=== PATIENT | female | born 2005 | race Caucasian/White ===

== ENCOUNTER 2023-04-11 20:32 | Emergency (ER) | payer MEDICAID, SELFPAY ==
[2023-04-11 20:47] VITALS: PULSE 85; RESP 18; TEMP 37.1; O2SAT 98; BMI 20.3
--- NOTE | 2023-04-11 20:51 | ED_ITS ---
[facility] - General Adult General: Stated complaint: Covid Positive Time Seen by Provider: 04/11/23 20:46 Source: patient Mode of arrival: ambulatory Limitations: no limitations History of Present Illness: 17-year-old female states that she had body aches chills not feeling well over the last 2 days. She denies any shortness of breath she is in no distress she did have a positive COVID test. She had no vomiting no diarrhea. Associated symptoms: Deny chest pain, dyspnea, headache(s), nausea, rash or vomiting Review of Systems Const: Reports: fever(s), chills and body aches; Denies: change in appetite Eyes: Denies: eye discomfort ENMT: Denies: throat pain or dental pain Card: Denies: chest pain Resp: Denies: dyspnea GI: Denies: abdominal pain, nausea, vomiting or diarrhea : Denies: dysuria Musc: Denies: neck pain or back pain Skin/Breast: Denies: rash Neuro: Denies: headache(s) Physical Exam Const: COMMON NORMALS: no acute distress, patient oriented x3 and healthy appearing HENMT: COMMON NORMALS: normocephalic and atraumatic HEAD & SCALP: normocephalic and atraumatic Neck/C-Spine: COMMON NORMALS: full ROM and supple Chest: COMMONS NORMALS: normal inspection of the chest and normal palpation of entire chest wall Resp: COMMON NORMALS: normal respiratory effort, No retractions, No use of accessory muscles and clear to auscultation bilaterally AUSCULTATION: clear to auscultation bilaterally Cardio: COMMON NORMALS: regular rate, regular rhythm and No murmurs present (Cardio) RATE: regular rate RHYTHM: regular rhythm GI: INSPECTION: Yes normal to inspection Extremity: COMMON NORMALS: normal to inspection and full ROM Neuro: COMMON NORMALS: patient oriented x3, moves all extremities and no focal motor deficits Psych: COMMON NORMALS: mental status grossly normal, Normal thought process present and cooperative THOUGHT PROCESS: Normal thought process present Skin: COMMON NORMALS: no rashes or lesions noted and no wounds GENERAL SKIN EXAM: no rashes or lesions noted [facility] - General Adult Medical Decision Making Patient presents with COVID she is well-appearing here in no distress we will give her Decadron she is stable for discharge she is follow-up with PCP and return if worsening. Discharge Plan Discharge Patient Disposition: Home Clinical Impression: COVID-19 Condition: Stable Discharge Orders: Discharge ED (Routine); Ordered 04/11/23 Ordered By: Pipo Del Rio Discharge Diet: Advance as tolerated Discharge Activity: Resume usual activity Patient Instructions: COVID-19 (Coronavirus Disease 2019) (ED) Coding Level of Care Code ED Audiovisual Librarian for Tsering Mitchell
[2023-04-11 20:59] VITALS: O2SAT 98
[2023-04-11] MEDS: dexamethasone 10 mg/mL INJ IM (21:10)
== END 2023-04-11 21:11 | disposition home or self-care (01) ==
PROVIDERS: Emergency Provider Emergency Medicine
DX: U07.1 COVID-19 (principal)
CPT/HCPCS: 96372; 99284; J1100

== ENCOUNTER 2023-05-17 12:33 | Emergency (ER) | payer MEDICAID, SELFPAY ==
[2023-05-17 12:48] VITALS: BP 131/79; PULSE 91; RESP 17; TEMP 36.7; O2SAT 97; BMI 19.5
--- NOTE | 2023-05-17 13:30 | W.ED.DENTAL ---
HPI - Dental/Oral General: Chief complaint: Dental/Oral Stated complaint: Dental Pain Time Seen by Provider: 05/17/23 13:14 History of Present Illness: 17-year-old female comes in today with dental pain and facial swelling. Patient reports upper left side jaw pain with mild facial swelling. Patient reports a history of root canal to the canine of the left upper jaw. Patient reports in the last 2 to 3 days she had increasing pain and followed by swelling in the face. Patient appears nontoxic. Patient appears in no acute distress. Associated symptoms: Denies fever(s) Review of Systems General: Reports: 10 or more systems reviewed and unremarkable except in HPI and below Const: Reports: chills; Denies: fever(s) ENMT: Reports: dental pain Card: Denies: chest pain Resp: Denies: dyspnea Physical Exam Const: COMMON NORMALS: alert HENMT: FACE & SINUS: edema (Left facial edema mild) TEETH & GINGIVA IMAGES: 1. Redness and swelling, tenderness to tooth THROAT: posterior oropharynx normal Neck/C-Spine: COMMON NORMALS: full ROM and no meningeal signs Resp: COMMON NORMALS: normal respiratory effort and clear to auscultation bilaterally AUSCULTATION: clear to auscultation bilaterally Cardio: COMMON NORMALS: regular rate and regular rhythm RATE: regular rate RHYTHM: regular rhythm GI: COMMON NORMALS: Soft to palpation and non-tender PALPATION: Yes Soft to palpation Back/Pelvis: COMMON NORMALS: thoracic and lumbar spine normal to inspection Extremity: COMMON NORMALS: normal to inspection Neuro: SENSORIUM/ORIENTATION: Yes alert MENINGEAL SIGNS: Yes no meningeal signs Skin: COMMON NORMALS: turgor normal GENERAL SKIN EXAM: turgor normal Course Vital Signs: Vital signs: Vital Signs Temperature 98.1 F 05/17/23 12:48 Pulse Rate 91 05/17/23 12:48 Respiratory Rate 17 05/17/23 12:48 Blood Pressure 131/79 05/17/23 12:48 Pulse Oximetry 97 05/17/23 12:48 Oxygen Delivery Me thod Room Air 05/17/23 12:48 [facility] - Dental/Oral Medical Decision Making 17-year-old female comes in today for complaints of left facial swelling with tenderness to the #11 tooth. On exam there is some erythema and swelling to the gingiva to the #11 tooth area. Posterior pharynx is open without any signs of swelling or asymmetry. Vital signs are normal. Lungs are clear to auscultation. No respiratory difficulty is noted. Differential diagnosis includes but not limited to dental carry, dental abscess, dental pain, retropharyngeal abscess. No signs of severe injury or infection is noted. Patient was started on Augmentin 1 tablet twice a day for 7 days. Patient was given 1 dose of dexamethasone in the emergency room for facial swelling. Patient was given hydrocodone 5 mg with 325 of acetaminophen for severe pain. Patient and male significant other reported understanding of care plan and need for follow-up or return to the ER. No radiology studies performed this visit Discharge Plan Discharge Patient Disposition: Home Clinical Impression: Dental abscess Condition: Stable Prescriptions: New amoxicillin-pot clavulanate 875-125 mg tablet 1 tab PO BID Qty: 14 0RF hydrocodone-acetaminophen 5-325 mg tablet 1 tab PO Q8H PRN (Reason: pain (scale score 7-10)) Qty: 5 0RF Discharge Orders: Discharge ED (Routine); Ordered 05/17/23 Ordered By: Joseph Melendrez Discharge Diet: Usual diet Discharge Activity: Increase activity as tolerated Patient Instructions: Toothache (ED), Opioid Safety Activity Restrictions/Additional Instructions: Take antibiotic as directed. Drink plenty of water and fluids. Follow-up with primary care in 1 week as needed. Follow-up with dentist for definitive care. Return to ED for new concerns. Coding Level of Care Code ED Trouble Clerk for Tsering Mitchell
[2023-05-17] MEDS: dexamethasone 4 mg Tablet 10 MG PO (13:49)
[2023-05-17] MEDS: amoxicillin-clav 875-125 mg Tablet 1 TAB PO (13:49)
[2023-05-17] MEDS: HYDROcodone-acetaminophen 5-325 mg Tablet 1 TAB PO (13:50)
[2023-05-17 13:52] VITALS: BP 131/79; PULSE 91; RESP 17; TEMP 36.7; O2SAT 97
== END 2023-05-17 13:58 | disposition home or self-care (01) ==
PROVIDERS: Emergency Provider Nurse Practitioner Family
DX: K04.7 Periapical abscess without sinus (principal)
CPT/HCPCS: 99283; J8540

== ENCOUNTER 2023-09-04 10:22 | Outpatient (CLI) | payer MEDICAID, SELFPAY ==
--- NOTE | 2023-09-04 10:30 | US_ITS ---
WS: [id number] ULTRASOUND LEFT BREAST HISTORY: fibroadenoma. Known mass as by patient is increasing in size. COMPARISON: 02/01/2023, 12/14/2022 TECHNIQUE: 2-D and Doppler. Well-circumscribed hypoechoic mass in the LEFT breast at 9:00, 1 cm from the nipple. There is mild pe ripheral vascularity. Mass measures 1.4 x 2.2 x 1.0 cm. This mass was also seen on the prior examinat ion from 02/01/2023 but does appear to be increased in size. Prior measurement of 1.0 x 0.5 x 1.0 cm. There does appear to be a clip within the mass indicating a prior biopsy. IMPRESSION: US/US breast LT limited* [id number] BI-RADS: 2-Benign FOLLOW-UP: See Report Slight increase in size of the previously biopsied fibroadenoma LEFT breast.
== END 2023-09-04 10:23 | disposition home or self-care (01) ==
LOC: RAD 10:23
PROVIDERS: PCP Family Medicine; Visit Provider Family Medicine
DX: D24.2 Benign neoplasm of left breast (principal)
CPT/HCPCS: 76642

== ENCOUNTER 2023-12-25 10:48 | Emergency (ER) | payer MEDICAID, SELFPAY ==
[2023-12-25 11:00] VITALS: BP 125/83; PULSE 63; RESP 18; TEMP 36.8; O2SAT 99; BMI 17.4
[2023-12-25 11:13] LABS: Basophils % 0.4 %; Eosinophils % 0.4 %; Hematocrit 39.9 % (36-47); Lymphocytes # 2.1 10^3/uL (1.5-6.5); Lymphocytes % 31.2 %; Mean Corpuscular HGB Conc 32.8 g/dL (30-55); Mean Corpuscular Hemoglobin 29.4 pg (27-33); Mean Corpuscular Volume 89.7 fl (85-98); Mean Platelet Volume 9.8 fL (7.4-10.4); Monocytes # 0.5 10^3/uL (0.2-0.9); Monocytes % 6.9 %; Neutrophils # 4.11 10^3/uL (1.8-8.0); Neutrophils % 60.8 %; Nucleated Red Blood Cells % 0 %; Platelet Count 290 10^3/cmm (157-399); Red Blood Count 4.45 10^6/uL (3.85-5.65); Red Cell Distribution Width 13.3 % (12.1-15.1); White Blood Count 6.77 10^3/uL (4.5-13.0)
[2023-12-25 11:25] LABS: Alanine Aminotransferase 8 U/L (0-33); Albumin Level 4.2 g/dL (3.5-5.2); Alkaline Phosphatase 89 U/L (35-105); Anion Gap 15.9 (5-19); Aspartate Amino Transferase 13 U/L (0-32); Blood Urea Nitrogen 6 mg/dL (6-20); Calcium 9.2 mg/dL (8.5-10.5); Carbon Dioxide 23 mmol/L (22-29); Chloride 103 mmol/L (98-107); Creatinine Clr Calc Pharmacy 133.8726; Globulin 3.5 g/dL (1.3-4.6); Glomerular Filtration Rate 127.5 mL/min (90-130); Glucose 86 mg/dL (65-115); Lipase 23 U/L (13-60); Osmolality Calculated 283 mOsm/kg (285-295); Potassium 3.9 mmol/L (3.5-5.1); Sodium 138 mmol/L (136-145); Total Bilirubin 0.7 mg/dL (0.15-1.2); Total Protein 7.7 g/dL (6.6-8.7)
[2023-12-25 11:31] LABS: HCG, Serum Qual Negative (Negative)
--- NOTE | 2023-12-25 12:44 | US_ITS ---
WS: [id number] US transvaginal [id number] HISTORY: PCOS history with acute pelvic pain today-neg hcg COMPARISON: None available. Uterus: 6.3 cm x 4.9 cm x 3.0 cm. Normal size anteverted uterus. No fibroid or mass. Endometrium: 0.1 cm. Thin atrophic endometrium. Right ovary: 3.0 cm x 1.4 cm x 2.8 cm. Ovary is normal size. There are several small follicles but le ss than 20 within the ovary. Normal vascularity. Left ovary: 2.9 cm x 1.4 cm x 1.9 cm. Small follicles throughout the ovary. Number of follicles near 20. Normal vascularity. No cyst or solid mass. Small amount of free fluid in the cul-de-sac. US/US transvaginal [id number] IMPRESSION: 1. Thin endometrium. 2. Numerous follicles in the LEFT ovary which can be seen with PCOS. Less than 20 follicles RIGHT ovary.
--- NOTE | 2023-12-25 12:45 | ED_ITS ---
HPI - Abdominal Pain 2 General: Chief Complaint: Abdominal Pain Stated Complaint: abd pain, lower back pain, leg pain Time Seen by Provider: 12/25/23 12:12 Source: patient Mode of arrival: ambulatory Limitations: no limitations History of Present Illness: This patient was referred from urgent care. She states that when she awoke this morning before she got a bed she had pain in her left lower abdomen. She stated the pain seemed to radiate into her legs and into her low back. She denies any associated nausea vomiting or diarrhea. She denies any dysuria. Her last menstrual period started 2 days ago and has been normal thus far. She does relate that she has had a history of polycystic ovarian disease. She currently takes oral contraceptives. She denies abdominal surgeries. She denies any injuries lifting vaginal discharge history of STDs, pregnancies etc. No dysuria, hematuria or history of kidney stones. Location: LLQ Migration to: no migration Associated Symptoms: Reports no associated symptoms; Denies chills, diarrhea, dysuria, fever(s), hematemesis, nausea and vomiting Review of Systems 2 Const: Denies: fever(s) or chills ENMT: Denies: throat pain, odynophagia, nasal discharge or nasal congestion Card: Denies: chest pain or palpitations Resp: Denies: dyspnea, productive cough or non-productive cough GI: Denies: nausea, vomiting, hematemesis or diarrhea : Reports: vaginal bleeding; Denies: flank pain, difficulty voiding, dysuria, urinary frequency or vaginal discharge Musc: Denies: neck pain, extremity pain or extremity swelling Skin/Breast: Denies: rash Neuro: Denies: headache(s), numbness in extremities or weakness in extremities Endo: Denies: polyuria or polydipsia PFSH ED 2 PFSH: Medical History Fibroadenoma of left breast Right arm fracture PCOS (polycystic ovarian syndrome) Surgical History History of surgery on arm Social History Smoking and tobacco/nicotine status: current every day tobacco/nicotine user e- cigarettes E-Cigarette Details: with nicotine Quit status (tobacco/nicotine): considering quitting Second hand smoke exposure: No Alcohol intake: never Substance/Drug Use: never Adopted: No Caregiver/support person: No Lives independently: Yes Household members: significant other service: No Current occupational status: employed and unemployed Current occupational exposures/hazards: No Pets and animals: No Sexually active: Yes Do you think of yourself as: Straight/Heterosexual Current gender identity: Female Female Reproductive History: Spontaneous abortions: No Physical Exam 2 Narrative: EXAM NARRATIVE: Well-developed healthy-appearing female who is quiet and comfortable answers questions appropriately. Const: COMMON NORMALS: no acute distress, patient oriented x3, healthy appearing and alert GENERAL APPEARANCE: cooperative and comfortable N UTRITIONAL APPEARANCE: thin HENMT: COMMON NORMALS: normocephalic, Normal nasal mucous membranes and turbinates present, moist oral mucous membranes and oropharynx normal HEAD & SCALP: normocephalic NOSE: Normal nasal mucous membranes and turbinates present Eye: COMMON NORMALS: Equal, round and reactive pupils present and EOMs intact bilaterally PUPIL: Yes Equal, round and reactive pupils present Neck/C-Spine: COMMON NORMALS: full ROM, no lymphadenopathy and supple Resp: COMMON NORMALS: normal respiratory effort and clear to auscultation bilaterally AUSCULTATION: clear to auscultation bilaterally Cardio: COMMON NORMALS: regular rate, regular rhythm, No murmurs present (Cardio) and Peripheral pulses 2+ throughout RATE: regular rate RHYTHM: r egular rhythm PERIPHERAL PULSES: Peripheral pulses 2+ throughout GI: COMMON NORMALS: Soft to palpation and no masses PALPATION: Yes Soft to palpation OTHER: Thin abdomen which appears normal. Normal bowel sounds. She has some mild tenderness in left lower quadrant as well as left upper quadrant to palpation. No rebound or guarding. Any attempted exacerbation of her symptoms does not change her symptoms. : COMMON NORMALS: Yes no CVA tenderness BLADDER/KIDNEY EXAM: Yes no CVA tenderness Back/Pelvis: COMMON NORMALS: no CVA tenderness, thoracic and lumbar spine normal to inspection, no thoracic nor lumbar tenderness, thoraco-lumbar ROM normal and straight leg raise negative bilaterally Extremity: COMMON NORMALS: normal to inspection, full ROM, capillary refill normal, no joint enlargement, no calf tenderness and no pedal edema Neuro: COMMON NORMALS: patient oriented x3, moves all extremities, no focal motor deficits and no sensory deficits noted SENSORIUM/ORIENTATION: Yes alert Psych: COMMON NORMALS: mental status grossly normal Skin: COMMON NORMALS: no rashes or lesions noted, no wounds and turgor normal GENERAL SKIN EXAM: no rashes or lesions noted and turgor normal Course 2 Reevaluation(s): Reevaluation #1: Patient states she is feeling some better. She was reexamined. She still has some residual tenderness in the left upper and right upper quadrants but no left or right lower quadrant tenderness at this time. No peritoneal signs no other concerning findings. I shared the results of ultrasound and laboratories with her. Plan will be put her on nonsteroidals for the next 3 to 5 days and have her follow-up if she is having any change in her symptoms or any concerns. She acknowledged our discussion and recommendations. No evidence of surgical condition at this time. Time: 14:46 Vital Signs: Vital signs: Vital Signs Temperature 98.3 F 12/25/23 11:00 Pulse Rate 50 L 12/25/23 14:00 Respiratory Rate 14 12/25/23 14:00 Blood Pressure 116/67 12/25/23 14:00 Pulse Oximetry 100 12/25/23 14:00 Oxygen Delivery Me thod Room Air 12/25/23 14:00 MDM - Abdominal Pain Medical Decision Making This patient present herself to the emergency department today because of left lower quadrant pain. She states the pain came on this morning when she was getting out of bed. She states that was rather abrupt in onset and has improved some but she still has some residual pain and discomfort in was told to come to the emergency department. She has a history of polycystic ovarian disease. No history of PID or other issues. She is currently taking oral contraceptives and is currently menstruating. She has had no fevers nausea vomiting diarrhea etc. She has not had no lightheadedness or syncope. Her clinical exam revealed left lower quadrant left upper quadrant tenderness but no right lower quadrant tenderness. There is no evidence of peritoneal irritation or surgical abdomen. Screening laboratories hCG were obtained which were reassuring. Pelvic ultrasound was obtained which revealed multiple cysts on both ovaries. Small amount of free fluid present in the pelvis as well. Repeat examination revealed no evidence of surgical abdomen and no other tenderness of the left upper quadrant and some in the left lower quadrant residual. Absolutely no right lower quadrant tenderness. No peritoneal signs. Low risk for appendicitis or other surgical conditions at this time. Likely represents a rupture of one of her many cysts was small extrusion of blood in her pelvis. No evidence of ongoing bleeding with a stable hemoglobin a stable examination and stable vital signs. Will place her on nonsteroidals and to follow her response. She voiced understanding of the return precautions. Lab Data I reviewed the patient's lab results. 12/25/23 10:55 12/25/23 10:55 Labs/Radiology: Radiology Impressions Transvaginal US 12/25/23 12:44 IMPRESSION: 1. Thin endometrium. 2. Numerous follicles in the LEFT ovary which can be seen with PCOS. Less than 20 follicles RIGHT ovary. Laboratory Results WBC 6.77 10^3/uL (4.5-13.0) 12/25/23 10:55 RBC 4.45 10^6/uL (3.85-5.65) 12/25/23 10:55 Hgb 13.10 g/dL (12.4-14.8) 12/25/23 10:55 Hct 39.9 % (36-47) 12/25/23 10:55 MCV 89.7 fl (85-98) 12/25/23 10:55 MCH 29.4 pg (27-33) 12/25/23 10:55 MCHC 32.8 g/dL (30-55) 12/25/23 10:55 RDW 13.3 % (12.1-15.1) 12/25/23 10:55 Plt Count 290 10^3/cmm (157-399) 12/25/23 10:55 MPV 9.8 fL (7.4-10.4) 12/25/23 10:55 Neut % (Auto) 60.8 % 12/25/23 10:55 Lymph % (Auto) 31.2 % 12/25/23 10:55 Humphreys % (Auto) 6.9 % 12/25/23 10:55 Eos % (Auto) 0.4 % 12/25/23 10:55 Baso % (Auto) 0.4 % 12/25/23 10:55 Neut # (Auto) 4.11 10^3/uL (1.8-8.0) 12/25/23 10:55 Lymph # (Auto) 2.1 10^3/uL (1.5-6.5) 12/25/23 10:55 Humphreys # (Auto) 0.5 10^3/uL (0.2-0.9) 12/25/23 10:55 Eos # (Auto) 0.0 10^3/uL (0.0-0.8) 12/25/23 10:55 Baso # (Auto) 0.0 10^3/uL (0.0-0.1) 12/25/23 10:55 Nucleated RBC % (auto) 0 % 12/25/23 10:55 Nucleated RBCs # 0.0 /100WBC 12/25/23 10:55 Sodium 138 mmol/L (136-145) 12/25/23 10:55 Potassium 3.9 mmol/L (3.5-5.1) 12/25/23 10:55 Chloride 103 mmol/L (98-107) 12/25/23 10:55 Carbon Dioxide 23 mmol/L (22-29) 12/25/23 10:55 Anion Gap 15.9 (5-19) 12/25/23 10:55 BUN 6 mg/dL (6-20) 12/25/23 10:55 Creatinine 0.6 mg/dL (0.5-0.9) 12/25/23 10:55 GFR Calculation 127.5 mL/min (90-130) 12/25/23 10:55 Glucose 86 mg/dL (65-115) 12/25/23 10:55 Calculated Osmolality 283 mOsm/kg (285-295) L 12/25/23 10:55 Calcium 9.2 mg/dL (8.5-10.5) 12/25/23 10:55 Total Bilirubin 0.7 mg/dL (0.15-1.2) 12/25/23 10:55 AST 13 U/L (0-32) 12/25/23 10:55 ALT 8 U/L (0-33) 12/25/23 10:55 Alkaline Phosphatase 89 U/L (35-105) 12/25/23 10:55 Total Protein 7.7 g/dL (6.6-8.7) 12/25/23 10:55 Albumin 4.2 g/dL (3.5-5.2) 12/25/23 10:55 Globulin 3.5 g/dL (1.3-4.6) 12/25/23 10:55 Lipase 23 U/L (13-60) 12/25/23 10:55 HCG, Qual Negative (Negative) 12/25/23 10:55 Urine Color Red (Yellow) A 12/25/23 12:30 Urine Appearance Cloudy (CLEAR) A 12/25/23 12:30 Urine pH 7 (5-7) 12/25/23 12:30 Ur Specific [place] 1.015 (1.005-1.030) 12/25/23 12:30 Urine Protein 2+ (Negative) H 12/25/23 12:30 Urine Glucose (UA) Norm (Normal) 12/25/23 12:30 Urine Ketones Negative (Negative) 12/25/23 12:30 Urine Blood 3+ (Negative) H 12/25/23 12:30 Urine Nitrate Negative (Negative) 12/25/23 12:30 Urine Bilirubin 1+ (Negative) H 12/25/23 12:30 Urine Urobilinogen 1 mg/dL (Negative) H 12/25/23 12:30 Ur Leukocyte Esterase Trace (Negative) H 12/25/23 12:30 Urine RBC Too numerous to cnt /hpf (0-2) H 12/25/23 12:30 Urine WBC 0-4 /hpf (0-5) H 12/25/23 12:30 Ur Squamous Epith Cells 0-4 /hpf (0-5) H 12/25/23 12:30 Amorphous Sediment Not Reportable 12/25/23 12:30 Urine Bacteria Trace /hpf (NONE) 12/25/23 12:30 Urine Mucus Trace /hpf 12/25/23 12:30 All radiology interpretation(s) finalized by discharge Discharge Plan Discharge Patient Disposition: Home Clinical Impression: Polycystic ovaries Abdominal pain Qualifiers: Abdominal location: left lower quadrant Qualified Code(s): R10.32 - Left lower quadrant pain Condition: Stable Prescriptions: New naproxen [Naprosyn] 500 mg tablet 500 mg PO BID Qty: 30 0RF No Action Tri-Lo-Janeth 0.18/0.215/0.25 mg-25 mcg tablet 1 tab PO QPM Discharge Orders: Discharge ED (Routine); Ordered 12/25/23 Ordered By: Evan Camargo Referrals: Ole Perez MD [Primary Care Provider] - 4-7 days Discharge Diet: Usual diet Discharge Activity: Increase activity as tolerated Patient Instructions: Abdominal Pain (ED), Opioid Safety, Pain Management Activity Restrictions/Additional Instructions: As we discussed your evaluation in the emergency department today revealed you had multiple cysts on your ovaries. No evidence of other concerning findings during your evaluation. We expect this pain to improve over the next 48 to 72 hours. If it does not continue to improve or worsening at any time or you develop new symptoms such as increasing pain, fever inability to eat or drink etc. return to the emergency department for reevaluation otherwise follow-up with your regular doctor in 1 week. Coding Level of Care Code ED Repairer Pump for Tsering Mitchell
[2023-12-25 13:02] LABS: Add Urine Microscopic? YES; Bilirubin Urine 1+ (Negative); Blood Urine 3+ (Negative); Glucose Urine UA Norm (Normal); Ketones Urine Negative (Negative); Leukocyte Esterase Urine Trace (Negative); Nitrate Urine Negative (Negative); Protein Urine 2+ (Negative); Specific Gravity, Urine 1.015 (1.005-1.030); Urine Appearance Cloudy (CLEAR); Urine Color Red (Yellow); Urobilinogen Urine 1 mg/dL (Negative); pH Urine 7 (5-7)
[2023-12-25 13:14] LABS: RBC Urine TOO NUMEROUS TO CNT /hpf (0-2); Squamous Epithelial Cell Urine 0-4 /hpf (0-5); WBC Urine 0-4 /hpf (0-5)
[2023-12-25 13:15] LABS: Add Urine Culture? Yes; Bacteria Urine TRACE /hpf; Mucus Urine TRACE /hpf
[2023-12-25 13:37] VITALS: BP 102/66; PULSE 50; RESP 16; O2SAT 99
[2023-12-25 14:00] VITALS: BP 116/67; PULSE 50; RESP 14; O2SAT 100
[2023-12-25] MEDS: ketorolac 30 mg/mL INJ 15 MG IVP (14:14)
[2023-12-25 15:04] VITALS: BP 112/72; PULSE 52; O2SAT 98
== END 2023-12-25 15:05 | disposition home or self-care (01) ==
PROVIDERS: Emergency Medicine; Emergency Provider Emergency Medicine; PCP Family Medicine
DX: R10.32 Left lower quadrant pain (principal); E28.2 Polycystic ovarian syndrome; F17.290 Nicotine dependence, other tobacco product, uncomplicated
CPT/HCPCS: 36415; 76830; 80053; 81001; 83690; 84703; 85025; 87086; 96374; 99284; J1885

== ENCOUNTER → 2024-02-05 11:12 | Outpatient (BNVA) | payer MEDICAID, SELFPAY | PROVIDERS: PCP Family Medicine; Visit Provider Emergency Medicine | DX: R30.0 Dysuria (principal) | CPT/HCPCS: 81000 ==

== ENCOUNTER 2024-02-09 22:12 | Emergency (ER) | payer MEDICAID, SELFPAY ==
[2024-02-09 22:18] VITALS: BP 142/100; PULSE 110; RESP 18; TEMP 36.8; O2SAT 99; BMI 19.0
[2024-02-10 02:40] VITALS: BP 117/68; PULSE 51; RESP 16; O2SAT 97
[2024-02-10] MEDS: ketorolac 30 mg/mL INJ IM (02:43)
[2024-02-10 02:44] VITALS: RESP 16; O2SAT 100
[2024-02-10] MEDS: oxyCODONE-APAP 5-325 mg Tablet 2 TAB PO (02:44)
[2024-02-10] MEDS: metoclopramide 10 mg Tablet PO (02:45)
[2024-02-10] MEDS: dexamethasone 4 mg Tablet 10 MG PO (02:46)
[2024-02-10 02:48] VITALS: BP 134/65; PULSE 62; RESP 16; O2SAT 100
[2024-02-10 03:03] VITALS: BP 134/65; PULSE 62; RESP 16; TEMP 36.8; O2SAT 100
--- NOTE | 2024-02-10 21:27 | ED_ITS ---
HPI - Dental/Oral General: Chief complaint: Dental/Oral Stated complaint: Mouth Pain to Head Time Seen by Provider: 02/10/24 01:54 History of Present Illness: 18 year old healthy female presenting wi th upper teeth pain, facial pain, with some swelling. No fever. She's had pain for a few days, but became much worse today. Associated symptoms: Denies fever(s) Review of Systems Const: Denies: fever(s) ENMT: Denies: throat pain or hoarseness Resp: Denies: dyspnea GI: Reports: nausea PFSH ED PFSH: Medical History Fibroadenoma of left breast Right arm fracture PCOS (polycystic ovarian syndrome) Surgical History History of surgery on arm Social History Smoking and tobacco/nicotine status: unknown if used tobacco/nicotine Quit status (tobacco/nicotine): considering quitting Second hand smoke exposure: No Alcohol intake: never Substance/Drug Use: never Adopted: No Caregiver/support person: No Lives independently: Yes Household members: significant other service: No Current occupational status: employed and unemployed Current occupational exposures/hazards: No Pets and animals: No Sexually active: Yes Do you think of yourself as: Straight/Heterosexual Current gender identity: Female Female Reproductive History: Spontaneous abortions: No Physical Exam Const: GENERAL APPEARANCE: cooperative; not ill appearing ORIENTATION/CONSCIOUSNESS: Yes awake HENMT: COMMON NORMALS: normocephalic and Normal external nose present HEAD & SCALP: normocephalic FACE & SINUS: sinus tenderness maxillary; no ecchymosis, no erythema and no edema NOSE: Normal external nose present and Normal nares present TYMPANIC MEMBRANE: TM normal on the right TEETH & GINGIVA: Yes abnormal tooth and associated gingiva THROAT: posterior oropharynx normal Eye: COMMON NORMALS: Equal, round and reactive pupils present and EOMs intact bilaterally PUPIL: Yes Equal, round and reactive pupils present Course Vital Signs: Vital signs: Vital Signs Temperature 98.2 F 02/10/24 03:03 Pulse Rate 62 02/10/24 03:03 Respiratory Rate 16 02/10/24 03:03 Blood Pressure 134/65 02/10/24 03:03 Pulse Oximetry 100 02/10/24 03:03 Oxygen Delivery Me thod Room Air 02/10/24 02:48 MDM - Dental/Oral Medical Decision Making Likely early Abscess present period no pointing. No drainage. Single dose of dexamethasone for pain and swelling, pain medication, antibiotics. Dental follow up. No radiology studies performed this visit Discharge Plan Discharge Patient Disposition: Home Clinical Impression: Dental abscess Condition: Stable Prescriptions: New amoxicillin-pot clavulanate 875-125 mg tablet 1 tab PO BID Qty: 20 0RF ketorolac 10 mg tablet 10 mg PO TID PRN (Reason: pain) Qty: 10 0RF Percocet 7.5-325 mg tablet 1 tab PO Q6H PRN (Reason: pain) Qty: 10 0RF No Action ondansetron 8 mg tablet,disintegrating 8 mg PO Q8H PRN (Reason: nausea and vomiting) 5 Days Qty: 15 0RF Tri-Lo-Janeth 0.18/0.215/0.25 mg-25 mcg tablet 1 tab PO QPM Qty: 84 0RF Naprosyn 500 mg tablet 500 mg PO BID Qty: 30 0RF Discharge Orders: Discharge ED (Routine); Ordered 02/10/24 Ordered By: Jay Long Referrals: Ole Perez MD [Primary Care Provider] - Patient Instructions: Dental Abscess (ED), Opioid Safety, Pain Management Coding Level of Care Code ED International Recruiter for Tsering Mitchell
== END 2024-02-10 03:05 | disposition home or self-care (01) ==
PROVIDERS: Emergency Provider Emergency Medicine; PCP Family Medicine
DX: K04.7 Periapical abscess without sinus (principal)
CPT/HCPCS: 96372; 99284; J1885; J8540; J8597